=== PATIENT | female | born 1935 | race Caucasian/White ===

== ENCOUNTER → 2020-05-13 | Outpatient (CLI) | payer MEDICARE ==
[~2020-05-13] MED LIST: ALLO100 PO; Adult Low Dose81 MG PO; POLY17UD PO; Synthroid100 MCG PO; TRAM50 PO
[2020-05-13 15:06] LABS: Source, Urine Clean Catch
[2020-05-13 17:30] LABS: Bilirubin, Urine Neg (Neg); Blood, Urine Neg (Neg); Glucose Qualitative, Urine Neg (Neg); Ketones, Urine Neg (Neg); Leukocyte Esterase, Urine Neg (Neg); Nitrite, Urine Neg (Neg); Protein, Urine Neg (Neg); Urobilinogen, Urine NORM (Normal); pH, Urine 6.5 (5.0-8.0)
[2020-05-13 18:07] LABS: Appearance, Urine Clear (Clear); Color, Urine Yellow (P-Yellow)
== END | disposition home or self-care (01) ==
LOC: LAB 15:05 → LAB SHORT 15:05
PROVIDERS: Internal Medicine
DX: R30.0 Dysuria (principal)
CPT/HCPCS: 81003

== ENCOUNTER → 2020-06-04 | Outpatient (CLI) | payer MEDICARE | END | disposition home or self-care (01) | LOC: PLD 10:25 → LAB SHORT 10:25 | DX: C44.622 Squamous cell carcinoma of skin of right upper limb, including shoulder (principal) | CPT/HCPCS: 88305 ==